=== PATIENT | male | born 1935 | race Caucasian/White ===

== ENCOUNTER 2020-08-14 13:54 | Emergency (ER) | payer MEDICARE ==
[~2020-08-14] VITALS: Ht 177.8 cm; Wt 77.5 kg
[2020-08-14 14:57] LABS: BILIRUBIN,URINE NEGATIVE (NEG); CLARITY,URINE CLOUDY; COLOR,URINE YELLOW; NITRITE,URINE POSITIVE (NEG); PH,URINE 7.5 (<5.0-8.0); PROTEIN,URINE 100 mg/dL (NEG-TRACE)
[2020-08-14 15:21] LABS: BACTERIA,URINE MANY /HPF (0-FEW); RBC,URINE 20-40 /HPF (0-2); WBC,URINE 20-40 /HPF (0-4)
--- NOTE | 2020-08-14 15:23 | ED.ADGEN ---
Past Medical History Past Medical History: A-Fib, Prostatitis Past Surgical History: Other Additional Past Surgical Histo: unknown Smoking Status: Never Smoker Alcohol Use: None General Adult EDM: Chief Complaint: URINE CATHETER PROBLEM HPI: HPI: Patient is an 84-year-old male who presents to the emergency room complaining of difficulty with his Jones catheter. Patient has dementia and history is limited. According to nursing staff they felt that maybe his catheter was blocked. They did irrigate it prior to arrival. Denies other complaints Review of Systems: Review of Systems: Complete ROS is negative unless otherwise documented in HPI Physical Exam: PE: General: Awake, alert, NAD. Well Nourished, well hydrated. Cooperative HEENT: Atraumatic, EOMI, PERRL, airway patent, moist oral mucosa Neck: Supple, trachea midline Respiratory: CTA bilaterally, normal effort, no wheezing/crackles CV: RRR, no murmur, cap refill <2 GI: Soft, nondistended, nontender, no masses, jones in place MSK: No obvious deformities Skin: Warm, dry, intact Neuro: A&O x3, speech NL, sensory and motor grossly intact, no focal deficits Psych: Normal affect, normal mood, not suicidal or homicidal Current Patient Data: Labs: Laboratory Tests Test 08/14/20 14:30 Urine Collection Type Unknown Urine Color Yellow Urine Clarity Cloudy Urine pH 7.5 (<5.0-8.0) Urine Specific Aline 1.015 (1.000-1.030) Urine Protein 100 mg/dL (NEG-TRACE) Urine Glucose (UA) Negative mg/dL (NEG) Urine Ketones (Stick) Negative mg/dL (NEG) Urine Blood Large (NEG) Urine Nitrite Positive (NEG) Urine Bilirubin Negative (NEG) Urine Urobilinogen Dipstick 1.0 mg/dL (0.2 mg/dL) Urine Leukocyte Esterase Large (NEG) Urine RBC 20-40 /HPF (0-2) Urine WBC 20-40 /HPF (0-4) Urine Bacteria Many /HPF (0-FEW) Vital Signs: Vital Signs Date Time Temp Pulse Resp B/P (MAP) Pulse Ox O2 Delivery O2 Flow Rate FiO2 08/14/20 14:00 97.0 57 18 157/68 (97) 97 97.0 EKG: EKG: [] Heart Score: Risk Factors: Risk Factors: DM, Current or recent (<one month) smoker, HTN, HLP, family history of CAD, obesity. Risk Scores: Score 0 - 3: 2.5% MACE over next 6 weeks - Discharge Home Score 4 - 6: 20.3% MACE over next 6 weeks - Admit for Clinical Observation Score 7 - 10: 72.7% MACE over next 6 weeks - Early Invasive Strategies Radiology/Procedures: Radiology/Procedures: [] Course & Med Decision Making: Course & Med Decision Making Pertinent Labs and Imaging studies reviewed. (See chart for details) Patient presents with possible catheter issue. Bladder scan negative. UA sent due to smell of urine. Catheter flushing without difficulty. Dragon Disclaimer: [email or web address] Disclaimer: This electronic medical record was generated, in whole or in part, using a voice recognition dictation system. Departure Departure Impression: Primary Impression: Jones catheter problem Disposition: 01 DC HOME SELF CARE/HOMELESS Condition: STABLE Referrals: STEFANIE GASCA MD (PCP) Patient Instructions: Catheter-Associated Urinary Tract Infection FAQs - DAWSON, Jones Catheter Care, Adult Scripts Cephalexin (KEFLEX) 500 Mg Capsule 2 CAP PO Q12HR, #40 CAP Prov: GUSTAVO BROOKS MD 08/14/20 GUSTAVO BROOKS MD Aug 14, 2020 15:23
[2020-08-14] MEDS ORDERED: CEPH-264 PO (15:27)
[2020-08-14 16:15] VITALS: BP 146/86
== END 2020-08-14 16:10 | disposition home or self-care (01) ==
LOC: ER 13:54
DX: T83.018A Breakdown (mechanical) of other urinary catheter, initial encounter (principal); I48.20 Chronic atrial fibrillation, unspecified; Z98.890 Other specified postprocedural states
CPT/HCPCS: 81001; 99284